=== PATIENT | male | born 1965 | race Two or more races ===

== ENCOUNTER 2020-07-26 09:34 | Emergency (ER) | payer OTHER ==
[~2020-07-26] VITALS: Ht 177.8 cm; Wt 99.8 kg
[2020-07-26] MEDS ORDERED: METFORMIN HCL500 M3 PO (09:52)
[2020-07-26] MEDS ORDERED: ATORVASTATIN CA10 MG PO (09:53)
== END 2020-07-26 11:23 | disposition home or self-care (01) ==
LOC: ER 09:34
DX: L03.032 Cellulitis of left toe (principal)